=== PATIENT | male | born 1960 | race Caucasian/White ===

== ENCOUNTER 2017-06-15 16:19 | Outpatient (CLI) | payer OTHER ==
[2017-06-15 17:40] LABS: Hemoglobin 15.3 g/dL (14.0-18.0); Mean Corpuscular HGB CONC 33.9 g/dL (32.0-36.0); Mean Corpuscular Hemoglobin 32.3 pg (27.0-31.0); Mean Corpuscular Volume 95.2 fl (80.0-94.0); Platelet Count 165 thou/uL (130-400); RBC Distribution Width 12.1 % (11.5-14.5); Red Blood Cell (RBC) Count 4.75 mill/uL (4.70-6.10); White Blood Cell (WBC) Count 6.8 thou/uL (4.8-10.8)
[2017-06-15 17:44] LABS: INR-International Normal Ratio 1.1; PTT 28.6 SEC (22.9-36.1); Prothrombin Time 14.2 SEC (12.0-14.7)
[2017-06-15 17:46] LABS: Bilirubin Negative (Negative); Blood, Urine Negative (Negative); Clarity CLEAR (Clear); Glucose, Urine (Dipstick) Negative (Negative); Leukocyte Negative (Negative); Nitrite Negative (Negative); Protein, Urine (Dipstick) Negative (Neg-Trace); Specific Gravity, Urine 1.018 (1.002-1.036); Urobilinogen 0.2 mg/dL (0.2-1.0); pH, Urine 6.5 (5.0-9.0)
[2017-06-15 17:51] LABS: Bacteria/HPF None Seen HPF (None Seen); Hyaline Casts/LPF 0-3 HYALINE CAST LPF (0-3 Hyaline); Pathc Cast-AUWi Flag 0.27 (0-2.49); Squamous Epithelial 0-3 HPF (0-3); WBC/HPF 0-3 HPF (0-3)
[2017-06-15 18:19] LABS: Anion Gap 11 mmol/L (10-20); BUN (Urea Nitrogen) 15 mg/dL (8.4-25.7); Calc. Creatinine Clearance 0 mL/min (70-130); Calcium 9.5 mg/dL (7.8-10.44); Carbon Dioxide 26 mmol/L (22-29); Chloride 104 mmol/L (98-107); Estimated GFR-MDRD 79; Glucose 92 mg/dL (70-105); Sodium 137 mmol/L (136-145)
== END 2017-06-15 16:20 | disposition home or self-care (01) ==
LOC: LABBT 16:19
PROVIDERS: ATTEND Urology
DX: Z01.818 Encounter for other preprocedural examination (principal); N40.1 Benign prostatic hyperplasia with lower urinary tract symptoms
CPT/HCPCS: 80048; 81001; 85027; 85610; 85730; 87086; 93005; 93010

== ENCOUNTER 2017-06-28 12:26 | Observation (INO) | payer OTHER ==
[2017-06-28] MEDS ORDERED: Propofol 200 MG/20 ML VIAL ONE (13:08)
[2017-06-28] MEDS ORDERED: Dexamethasone 20 MG/5 ML VIAL ONE (13:08)
[2017-06-28] MEDS ORDERED: PHENYLEPHRINE-NS 100 MCG/ML 10 ML SYRINGE ONE (13:08)
[2017-06-28] MEDS ORDERED: Lidocaine 1% PF 5 ML VIAL ONE (13:08)
[2017-06-28] MEDS ORDERED: Ondansetron HCl/PF 4 MG/2 ML Vial ONE (13:08)
[2017-06-28] MEDS ORDERED: Levofloxacin 500 mg/D5W 100 ml Premix Bag ONE (14:07)
[2017-06-28] MEDS ORDERED: HYDROmorphone 0.5 MG/0.5 ML SYRINGE ONE (16:06)
[2017-06-28] MEDS ORDERED: Fentanyl 100 MCG/2 ML VIAL ONE (17:13)
[2017-06-28] MEDS ORDERED: Hyoscyamine Sulfate SL 0.125 mg Tablet SL PRN (17:36)
[2017-06-28] MEDS ORDERED: diphenhydrAMINE 25 MG CAP PO PRN (17:36)
[2017-06-28] MEDS ORDERED: hydrALAZINE 20 MG/ML VIAL SLOW IVP PRN (17:36)
[2017-06-28] MEDS ORDERED: Bisacodyl 10 MG SUPP PR PRN (17:36)
[2017-06-28] MEDS ORDERED: Ondansetron HCl/PF 4 MG/2 ML Vial IVP PRN (17:36)
[2017-06-28] MEDS ORDERED: Morphine 4 MG/ML Carpuject IVP PRN (17:36)
[2017-06-28] MEDS ORDERED: Mag-Al 1200 mg/1200 mg/30 ML UDCUP PO PRN (17:36)
[2017-06-28] MEDS ORDERED: Oxybutynin 5 MG TAB PO PRN (17:36)
[2017-06-28] MEDS ORDERED: HYDROcodone/Acetaminophen 5/325 mg Tablet PO PRN ×2 (17:36)
[2017-06-28 18:21] LABS: #Eosinphils 0.1 thou/uL (0.0-0.7); #Monocytes 0.4 thou/uL (0.11-0.59); #Neutrophils 3.4 thou/uL (1.40-6.50); %Basophils 0.3 % (0.0-1.0); %Eosinophils 2.5 % (0.0-10.0); %Lymphocytes 20.8 % (21.0-51.0); %Monocytes 7.2 % (0.0-10.0); %Neutrophils 69.3 % (42.0-75.0); Hemoglobin 15.1 g/dL (14.0-18.0); Mean Corpuscular HGB CONC 33.5 g/dL (32.0-36.0); Mean Corpuscular Hemoglobin 31.7 pg (27.0-31.0); Mean Corpuscular Volume 94.6 fl (80.0-94.0); Mean Platelet Volume 8.8 fL (7.4-10.4); Platelet Count 141 thou/uL (130-400); RBC Distribution Width 12.2 % (11.5-14.5); Red Blood Cell (RBC) Count 4.76 mill/uL (4.70-6.10); White Blood Cell (WBC) Count 4.9 thou/uL (4.8-10.8)
[2017-06-28 18:43] LABS: Anion Gap 13 mmol/L (10-20); BUN (Urea Nitrogen) 12 mg/dL (8.4-25.7); Calc. Creatinine Clearance 166 mL/min (70-130); Calcium 9.1 mg/dL (7.8-10.44); Carbon Dioxide 25 mmol/L (22-29); Chloride 102 mmol/L (98-107); Estimated GFR-MDRD Greater than 90; Glucose 100 mg/dL (70-105); Potassium 4.3 mmol/L (3.5-5.1); Sodium 136 mmol/L (136-145)
--- NOTE | 2017-06-28 19:46 | OP ---
DATE OF PROCEDURE: 06/28/2017 SERVICE: Urology. SURGEON: Hi Marrero M.D. PREOPERATIVE DIAGNOSIS: Benign prostatic hypertrophy. POSTOPERATIVE DIAGNOSIS: Benign prostatic hypertrophy. PROCEDURE PERFORMED: Transurethral vaporization of the prostate. INDICATIONS FOR PROCEDURE: Mr. Brown is a 56-year-old white male who came to see me for BPH with lo wer urinary tract symptoms. He actually can void quite well on his medications, but does not wish to remain on medications indefinitely. He states he would rather have a procedure and be done with med ications completely. We discussed transurethral vaporization of the prostate and he is in agreement to proceed forward. Risks and benefits were discussed. DESCRIPTION OF PROCEDURE: After identification of armband and verification of consent, the patient w as brought back to the operating room where he underwent general anesthesia with an LMA. He was then placed in dorsal lithotomy position, prepped and draped in usual sterile fashion. After appropriate timeout, a 24 Icelandic visual obturator was placed through the urethra with ease to the bladder neck a nd into the bladder. Both ureters were in their orthotopic location unharmed and in good location. The visual obturator was then removed and the bipolar button was brought in. Vaporization was stefani d out throughout the prostate circumferentially with relaxing incisions in the bladder neck at 5 and 7 o'clock. The prostate was quite short but vaporization was carried out circumferentially until the majority of the prostate had been resected. Care was taken not to penetrate the prostatic capsule. Upon completion, the prostate was wide open. There did appear to be some hematuria coming from with in the bladder, possibly due to mild over-distention of the bladder and rupture of some surface vesse l. There did not appear to be any significant bleeding towards the end of the case. I did not feel anything needed cauterization. The prostate bed was thoroughly cauterized and then the resectoscope removed. A 20 [place]ic 3-way Cruz catheter was then placed through the patient's urethra with 30 mL o f sterile water in the balloon. CBI was initiated. The patient was then awakened and taken to PACU for recovery in stable condition. COMPLICATIONS: None. ESTIMATED BLOOD LOSS: Minimal. RETAINED TUBES AND DRAINS: A 20 Icelandic 3-way Cruz catheter. SPECIMENS: None. DISPOSITION: The patient will be kept in the hospital overnight with CBI and be discharged in the mo rning, pending voiding trial.
[2017-06-28] MEDS: Docusate 100 MG CAP PO SCH (23:15)
[2017-06-29 00:25] VITALS: BMI 35.6
[2017-06-29 05:50] LABS: #Lymphocytes 0.8 thou/uL (1.20-3.40); #Monocytes 0.4 thou/uL (0.11-0.59); #Neutrophils 7.7 thou/uL (1.40-6.50); %Basophils 0.1 % (0.0-1.0); %Eosinophils 0.1 % (0.0-10.0); %Monocytes 4.9 % (0.0-10.0); %Neutrophils 85.9 % (42.0-75.0); Hemoglobin 15.9 g/dL (14.0-18.0); Mean Corpuscular HGB CONC 32.8 g/dL (32.0-36.0); Mean Corpuscular Hemoglobin 30.8 pg (27.0-31.0); Mean Platelet Volume 9.4 fL (7.4-10.4); Platelet Count 163 thou/uL (130-400); RBC Distribution Width 12.1 % (11.5-14.5); Red Blood Cell (RBC) Count 5.14 mill/uL (4.70-6.10); White Blood Cell (WBC) Count 8.9 thou/uL (4.8-10.8)
[2017-06-29 05:58] LABS: Anion Gap 14 mmol/L (10-20); BUN (Urea Nitrogen) 13 mg/dL (8.4-25.7); Calc. Creatinine Clearance 165 mL/min (70-130); Calcium 9.1 mg/dL (7.8-10.44); Carbon Dioxide 24 mmol/L (22-29); Chloride 103 mmol/L (98-107); Estimated GFR-MDRD Greater than 90; Glucose 137 mg/dL (70-105); Potassium 4.1 mmol/L (3.5-5.1); Sodium 137 mmol/L (136-145)
[2017-06-29] MEDS: Docusate 100 MG CAP PO SCH (08:42)
--- NOTE | 2017-06-29 09:43 | PRG ---
DATE OF SERVICE: 06/29/2017 SUBJECTIVE: The patient has no complaints this morning. He has no bladder spasms. He has no pain. He feels good, he vocalizes no other concerns. OBJECTIVE: VITAL SIGNS: Temperature 97.3, pulse 82, respirations 16, blood pressure 152/84, saturation 92% on r oom air. GENERAL: No apparent distress, communicative and alert. CARDIOVASCULAR: Regular rate and rhythm. CHEST: No increased work of breathing. ABDOMEN: Soft, nontender, nondistended, positive bowel sounds. GENITOURINARY: Cruz catheter secured in place. CBI is off. There is barely blood tinged urine wit hin the drainage tubing. EXTREMITIES: No clubbing, cyanosis or edema. LABORATORY DATA: A full set of labs are in the [employer] system, which I have reviewed. Of note, the patient's hemoglobin is 15.9, white count of 8.9, a creatinine of 0.82. ASSESSMENT AND PLAN: A 56-year-old white male status post transurethral vaporization of the prostate postoperative day 1 looking very well. We will plan a voiding trial and serial urine collection. I f he is able to urinate adequately without significant hematuria he should be able to be discharged h ome later today. PLAN: 1. Discontinue Cruz. 2. Plenty of fluids p.o. 3. Ambulation. 4. Serial urine collection. 5. Disposition pending evaluation of his hematuria and voiding trial.
[2017-06-29] MEDS ORDERED: Levofloxacin 500 mg/D5W 250 MG in Premix Bag 1 BAG IVPB SCH (11:45)
[2017-06-29 13:19] VITALS: BP 168/90; TEMP 98.4
== END 2017-06-29 14:45 | disposition home or self-care (01) ==
LOC: SDC 12:26 → SURG A 17:36
PROVIDERS: ADMIT Urology; ATTEND Urology
PROC: 0V507ZZ Destruction of Prostate, Via Natural or Artificial Opening (ICD-10-PCS; principal; 2017-06-29)
DX: N40.1 Benign prostatic hyperplasia with lower urinary tract symptoms (principal); Z87.891 Personal history of nicotine dependence
CPT/HCPCS: 36415; 80048; 85025; 86850; 86900; 86901; 96365; G0378; J1100; J1170; J1956; J2001; J2405; J2704; J3010

== ENCOUNTER 2024-07-25 07:40 | Outpatient (CLI) | payer MEDICARE | END 2024-07-25 07:41 | disposition home or self-care (01) | LOC: SCSMRI 07:40 | PROVIDERS: ATTEND Family Medicine | DX: R93.2 Abnormal findings on diagnostic imaging of liver and biliary tract (principal); D18.03 Hemangioma of intra-abdominal structures; K76.0 Fatty (change of) liver, not elsewhere classified; K86.89 Other specified diseases of pancreas | CPT/HCPCS: 36415; 74183; 82565 ==